=== PATIENT | female | born 1970 | race African-American/Black ===

== ENCOUNTER 2024-03-01 11:53 | Emergency (ER) | payer OTHER, SELFPAY ==
[2024-03-01 11:59] VITALS: BP 155/90; PULSE 107; RESP 14; TEMP 36.5; O2SAT 99; BMI 20.8
--- NOTE | 2024-03-01 12:43 | ED_ITS ---
HPI - Extremity Problem <Dayana Victoria PA-C - Last Filed: 03/01/24 19:18> General Chief complaint: Extremity Problem,Nontraumatic Stated complaint: px radiating from neck down the rt arm Time Seen by Provider: 03/01/24 12:43 Source: patient Mode of arrival: Ambulatory History of Present Illness HPI Narrative: Ms. Montes is a very pleasant 53-year-old female with a past medical history of [id number] type 2 diabetes who presents to the emergency department for right-sided neck pain radiating down the right arm x1 week. Patient states she ?slept on her neck wrong? about 1 week ago and has had worsening right-sided neck pain since then. States that the pain now radiates down the right arm and she also feels ?sore? in the right shoulder, right biceps, right forearm. Denies numbness, tingling, weakness. She does have pain with abduction of the right shoulder. She has a full-time caregiver. Denies any direct injury. States she does have a history of lumbar degenerative disc disease. She took ibuprofen around 10:00 a.m. which improves the symptoms. Related Data Previous Rx's Medication Instructions Recorded methocarbamol 500 mg tablet 500 mg PO TID PRN muscle pain #15 03/01/24 tabs Allergies Allergy/AdvReac Type Severity Reaction Status Date / Time morphine Allergy Verified 03/01/24 11:58 Review of Systems <Dayana Victoria PA-C - Last Filed: 03/01/24 19:18> Review of Systems ROS Unobtainable: All systems reviewed & are unremarkable except as noted in HPI and below Patient History <Dayana Victoria PA-C - Last Filed: 03/01/24 19:18> Social History Smoking Status: Current every day smoker Smoking Status: Current every day smoker Exam <Dayana Victoria PA-C - Last Filed: 03/01/24 19:18> Narrative Exam Narrative: GENERAL: 53 year old patient appears stated age. Well-developed patient, in no acute distress. HEAD: Atraumatic. Normocephalic. ENT: Nose without bleeding, purulent drainage. NECK: Trachea midline. Cervical ROM intact. No midline cervical tenderness. CARDIOVASCULAR: Regular rate. Strong radial pulse bilaterally. RESPIRATORY: ?Nonlabored respirations. ?Speaking in clear, full sentences. EXTREMITIES: No edema or joint tenderness. Subjective pain with active abduction of right shoulder however no pain with passive abduction of right shoulder. 5/5 bilateral veneer sawyer strength and sensation and strength intact in the distribution of the median, radial, ulnar nerves bilaterally BACK: Nontender without deformity or crepitance. NEURO: AOx3. ?Clear speech. ?Sensation intact to light touch throughout median, ulnar, radial nerves bilaterally. SKIN: No rash or erythema of visible areas Initial Vital Signs Initial Vital Signs: Vital Signs Temperature 97.7 F 03/01/24 11:59 Pulse Rate 107 H 03/01/24 11:59 Respiratory Rate 14 03/01/24 11:59 Blood Pressure 155/90 H 03/01/24 11:59 Pulse Oximetry 99 03/01/24 11:59 Oxygen Delivery Method Room Air 03/01/24 11:59 <Tyree Palomo MD - Last Filed: 03/01/24 19:56> Initial Vital Signs Initial Vital Signs: Vital Signs Temperature 97.7 F 03/01/24 11:59 Pulse Rate 107 H 03/01/24 11:59 Respiratory Rate 14 03/01/24 11:59 Blood Pressure 155/90 H 03/01/24 11:59 Pulse Oximetry 99 03/01/24 11:59 Oxygen Delivery Method Room Air 03/01/24 11:59 Course <Dayana Victoria PA-C - Last Filed: 03/01/24 19:18> Orders Ordered: ED Orders 03/01/24 12:53 CT cervical spine wo con Stat Discontinued Medications Acetaminophen (Acetaminophen 325 Mg Tablet) 975 mg PO NOW ONE Stop: 03/01/24 12:54 Last Admin: 03/01/24 13:29 Dose: 975 mg Documented By: LEIGHTON Ketorolac Tromethamine (Ketorolac 30 Mg/Ml Vial) 30 mg IM NOW ONE Stop: 03/01/24 15:23 Last Admin: 03/01/24 15:28 Dose: 30 mg Documented By: LEIGHTON Lidocaine (Lidocaine 5% Patch) 1 each TOP NOW ONE Stop: 03/01/24 12:54 Last Admin: 03/01/24 13:28 Dose: 1 each Documented By: LEIGHTON Vital Signs Vital signs: Vital Signs - 8 hr 03/01/24 11:59 03/01/24 13:00 03/01/24 16:15 Temperature 97.7 F 97.4 F L Pulse Rate 107 H 113 H 88 Respiratory Rate 14 18 16 Blood Pressure 155/90 H 153/95 H Pulse Oximetry 99 99 Oxygen Delivery Method Room Air Room Air Room Air <Tyree Palomo MD - Last Filed: 03/01/24 19:56> Orders Ordered: ED Orders 03/01/24 12:53 CT cervical spine wo con Stat Discontinued Medications Acetaminophen (Acetaminophen 325 Mg Tablet) 975 mg PO NOW ONE Stop: 03/01/24 12:54 Last Admin: 03/01/24 13:29 Dose: 975 mg Documented By: LEIGHTON Ketorolac Tromethamine (Ketorolac 30 Mg/Ml Vial) 30 mg IM NOW ONE Stop: 03/01/24 15:23 Last Admin: 03/01/24 15:28 Dose: 30 mg Documented By: LEIGHTON Lidocaine (Lidocaine 5% Patch) 1 each TOP NOW ONE Stop: 03/01/24 12:54 Last Admin: 03/01/24 13:28 Dose: 1 each Documented By: LEIGHTON Vital Signs Vital signs: Vital Signs - 8 hr 03/01/24 11:59 03/01/24 13:00 03/01/24 16:15 Temperature 97.7 F 97.4 F L Pulse Rate 107 H 113 H 88 Respiratory Rate 14 18 16 Blood Pressure 155/90 H 153/95 H Pulse Oximetry 99 99 Oxygen Delivery Method Room Air Room Air Room Air MDM - Extremity (Nontraumatic) <Dayana Victoria PA-C - Last Filed: 03/01/24 19:18> Imaging Data Cervical Spine CT: Radiologist's Impression: PROCEDURE: CT CERVICAL SPINE WO CON INDICATIONS: neck pain rad down r arm TECHNIQUE: Noncontrast 3 mm thick sections acquired from the skull base to the T4 level. Sagittal and coronal reformats were then constructed. For radiation dose reduction, the following was used: automated exposure control, adjustment of mA and/or kV according to patient size. COMPARISON: None. FINDINGS: Image quality: Excellent. Bones: No fractures or dislocations. Straightening of normal cervical lordosis. Multilevel degenerative changes. Probable moderate central canal stenosis at C5-C6. Mild multilevel central canal stenosis at other levels. Moderate to severe left neural foraminal stenosis at C3-C4 and bilaterally at C4-C5. Severe bilateral neural foraminal stenosis at C5-C6. Visualized superior ribs are intact. Soft tissues: Prevertebral soft tissues are normal in thickness. No parav ertebral hematomas. No apical pneumothoraces. IMPRESSION: Multilevel degenerative changes of the cervical spine as described above, most pronounced at C5-C6. MDM Narrative Medical decision making narrative: 53-year-old female with a past medical history of pcu-[id number] type 2 diabetes who presents to the emergency department for right-sided neck pain radiating down the right arm x1 week. Differential diagnosis includes but is not limited to right rotator cuff tear, cervical radiculopathy, muscle spasm, cervical strain, etc. On exam the patient is in no acute distress, nontoxic appearing, afebrile. She has subjective pain with active abduction of right shoulder but no pain with passive abduction. Positive right-sided empty can test concerning for possible rotator cuff injury. After shared decision-making with the patient, we will proceed with CT cervical spine to evaluate for possible underlying cervical radiculopathy. We will treat with Tylenol Lidoderm patch at this time she already took ibuprofen. CT reveals multilevel degenerative changes of the cervical spine most pronounced at C5-C6 where there is moderate central canal stenosis. Patient was also given IM Toradol after enough time had passed for additional NSAIDs. Suspect her symptoms are related to cervical radiculopathy. Due to her history of diabetes we will not treat with steroids. Recommended ibuprofen/Tylenol in addition I did prescribe her short course of Robaxin if needed. Discussed risks of muscle relaxers. Advised prompt follow up with her PCP and also provided her with spine orthopedic surgery follow up for further evaluation. We discussed gentle stretching. We discussed ER return precautions. Patient verbalized understanding of all information, is feeling better, is requesting discharge in stable for discharge home. Discharge Plan Departure Patient Disposition: Home Clinical Impression: Cervical radiculopathy, Degenerative disc disease, cervical Instructions: DI for Cervical Radiculopathy Activity Restrictions/Additional Instructions: Today you were evaluated for neck pain radiating down the right arm. You had a CT scan performed of your cervical spine which reveals multilevel degenerative changes of the cervical spine which are most pronounced at the C5-C6 level. I recommend that you follow up with an orthopedic spine surgeon for further evaluation. You can call [phone] to schedule an appointment with Dr. Mikey Tavarez, orthopedic spine surgeon with a [facility]. Please take Ibuprofen (Motrin/Advil) or Acetaminophen (Tylenol) for pain. These are available over the counter. You may take Ibuprofen 600 mg every 8 hours with food for pain. You may also take Acetaminophen 650 mg every 4-6 hours for pain. Do not exceed 3000 mg of Tylenol a day as this can cause liver damage. Do not drink alcohol with either of these medications. I have prescribed you a muscle relaxer to use if needed for muscle pain. This medication can make you drowsy. Do not drink alcohol or operate heavy machinery/drive a car while taking muscle relaxers. Please follow up with your primary care doctor within the next 2-3 days for ER follow-up. (If you do not have a PCP you can call [phone]. ?to schedule an appointment with an [facility] Primary Care Provider) IF YOU DEVELOP ANY NEW OR WORSENING SYMPTOMS, RETURN TO THE ER! Please read the attached instructions, they highlight more specific treatments and interventions for you at home. Thank you for letting me participate in your care, Dayana Victoria PA-C Prescriptions: New methocarbamol 500 mg tablet 500 mg PO TID PRN (Reason: muscle pain) Qty: 15 0RF Referrals: Miscellaneous,Doctor[facility] [Primary Care Provider] - Stand Alone Forms: Patient Portal/API/Survey ED Sign-out <Tyree Palomo MD - Last Filed: 03/01/24 19:56> Cosign ED Attending Milenaature Attestation: I was immediately available in the department for consultation. This documentation has been reviewed and I agree with assessment and plan. Supervised by Tyree Palomo MD
--- NOTE | 2024-03-01 12:53 | DI.CT.S_ITS ---
PROCEDURE: CT CERVICAL SPINE WO CON INDICATIONS: neck pain rad down r arm TECHNIQUE: Noncontrast 3 mm thick sections acquired from the skull base to the T4 level. Sagittal and coronal reformats were then constructed. For radiation dose reduction, the following was used: automated exposure control, adjustment of mA and/or kV according to patient size. COMPARISON: None. FINDINGS: Image quality: Excellent. Bones: No fractures or dislocations. Straightening of normal cervical lordosis. Multilevel degenerative changes. Probable moderate central canal stenosis at C5-C6. Mild multilevel central canal stenosis at other levels. Moderate to severe left neural foraminal stenosis at C3-C4 and bilaterally at C4-C5. Severe bilateral neural foraminal stenosis at C5-C6. Visualized superior ribs are intact. Soft tissues: Prevertebral soft tissues are normal in thickness. No paravertebral hematomas. No apical pneumothoraces. IMPRESSION: Multilevel degenerative changes of the cervical spine as described above, most pronounced at C5-C6. Dictated by: Presley Hussein M.D. on 03/01/2024 at 13:45 Approved by: Presley Hussein M.D. on 03/01/2024 at 13:48
[2024-03-01 13:00] VITALS: BP 153/95; PULSE 113; RESP 18; O2SAT 99
[2024-03-01] MEDS: LIDOCAINE 5% PATCH 1 EACH TOP (13:28)
[2024-03-01] MEDS: ACETAMINOPHEN 325 MG TABLET 975 MG PO (13:29)
[2024-03-01] MEDS: KETOROLAC 30 MG/ML VIAL IM (15:28)
[2024-03-01 16:15] VITALS: PULSE 88; RESP 16; TEMP 36.3
== END 2024-03-01 16:15 | disposition home or self-care (01) ==
PROVIDERS: Emergency Provider Physician Assistant
DX: M50.10 Cervical disc disorder with radiculopathy, unspecified cervical region (principal)
CPT/HCPCS: 72125; 96372; 99283; 99284; J1885

== ENCOUNTER → 2024-05-07 10:28 | Outpatient (CLI) | payer BC, SELFPAY ==
[2024-05-07 11:49] LABS: Add Manual Diff / Slide Review NO; Basophils Absolute Auto 100 /uL (0-100); Eosinophils Absolute Auto 100 /uL (0-450); Eosinophils Percent Auto 1.2 % (2-4); Hematocrit 38.9 % (36-46); Hemoglobin 12.6 g/dL (12.0-16.0); Lymphocytes Absolute Auto 2600 /uL (1100-4500); Lymphocytes Percent Auto 46.2 % (25-40); Mean Corpuscular HGB Conc 32.4 % (30-36); Mean Corpuscular Volume 83.5 fL (80-100); Monocytes Absolute Auto 400 /uL (0-900); Monocytes Percent Auto 6.4 % (3-14); Neutrophils Absolute Auto 2600 /uL (1500-7000); Neutrophils Percent Auto 45.2 % (50-75); Platelet Count 396 X10^3/uL (150-400); Red Blood Cell Count 4.67 X10^6/uL (4.0-5.2); Red Cell Distribution Width 14.6 % (11.6-14.8); White Blood Cell Count 5.7 X10^3/uL (4.5-11.0)
[2024-05-07 11:57] LABS: Hemoglobin A1C% w Est Avg Glu 7.6 % (4.0-6.0)
[2024-05-07 12:12] LABS: Alanine Aminotransferase 11 IU/L (<35); Albumin 4.5 g/dL (3.5-5.0); Alkaline Phosphatase 118 U/L (38-126); Aspartate Aminotransferase 17 IU/L (14-36); Bilirubin Total 0.5 mg/dL (0.2-1.3); Blood Urea Nitrogen 14 mg/dL (7-17); Calcium 11.4 mg/dL (8.4-10.2); Carbon Dioxide 27 mmol/L (22-32); Chloride 103 mmol/L (98-107); Cholesterol 196 mg/dL (140-199); Estimated Glomerular Filt Rate > 60 mL/min (>60); Globulin 2.2 g/dL (1.7-4.1); Glucose 202 mg/dL (70-100); HDL Cholesterol 80 mg/dL (40-60); HEMOLYSIS < 15 (0-50); LDL Cholesterol Calculated 99 mg/dL (<100); Potassium 4.4 mmol/L (3.4-5.1); Sodium 138 mmol/L (137-145); Total Protein 6.7 g/dL (6.3-8.2); Triglycerides 85 mg/dL (35-150)
[2024-05-07 12:40] LABS: TSH w/ Reflex to FT4 0.54 uIU/mL (0.47-4.68)
== END ==
PROVIDERS: PCP Family Medicine; Referring Provider Family Medicine; Visit Provider Family Medicine
DX: E11.9 Type 2 diabetes mellitus without complications (principal); I10 Essential (primary) hypertension; E78.5 Hyperlipidemia, unspecified; Z79.899 Other long term (current) drug therapy
CPT/HCPCS: 36415; 80053; 80061; 83036; 84443; 85025

== ENCOUNTER → 2024-12-01 15:52 | Outpatient (CLI) | payer BC, SELFPAY ==
--- NOTE | 2024-12-01 15:53 | DI.RAD.S_ITS ---
PROCEDURE: XR FOOT LT MIN 3V INDICATIONS: Left foot injury TECHNIQUE: 3 views of the foot were acquired. COMPARISON: None. FINDINGS: Bones: No fractures or dislocations. No suspicious bony lesions. Soft tissues: No tibiotalar joint effusion. Achilles tendon appears normal. IMPRESSION: No acute bony abnormality. Approved by: Evan Bowen M.D. on 12/01/2024 at 15:57
== END ==
PROVIDERS: PCP Family Medicine; Referring Provider Registered Nurse; Visit Provider Registered Nurse
DX: M79.672 Pain in left foot (principal)
CPT/HCPCS: 73630

== ENCOUNTER → 2025-03-02 09:29 | Outpatient (CLI) | payer BC, SELFPAY ==
--- NOTE | 2025-03-02 09:30 | DI.CT.S_ITS ---
PROCEDURE: CT LUNG LOW DOSE SCREENING INDICATIONS: chronic tobacco abuse TECHNIQUE: Noncontrast 2.0-2.5 mm thick sections acquired from the pulmonary apices to the posterior costophrenic angles. 7 mm thick axial MIP, and 5 mm coronal and sagittal reformats were then acquired. For radiation dose reduction, the following was used: automated exposure control, adjustment of mA and/or kV according to patient size. COMPARISON: None. FINDINGS: Image quality: Diagnostic. Lower Neck: No enlarged lymph nodes. Thyroid: No thyroid nodules which require sonographic follow up, per consensus guidelines. Axillae: No enlarged lymph nodes. Chest Wall: Unremarkable. Bones: No aggressive appearing bony lesions. Lungs and Pleura: No pneumothorax or pleural effusions. No consolidation or suspicious nodules. Heart: Heart size is normal. No pericardial effusion. Thoracic Vessels: The aorta and pulmonary arteries demonstrate normal size. Mediastinum and Monique: No enlarged lymph nodes. Esophagus: No wall thickening. No hiatal hernia. Upper Abdomen: Visualized upper abdomen solid organs and bowel loops appear normal. IMPRESSION: No suspicious pulmonary nodules. LUNG-RADS 1; continued annual screening, if eligible. Clinically Significant Non-pulmonary Findings: None. Dictated by: Jesse Rodriges M.D. on 03/02/2025 at 13:46 Approved by: Jesse Rodriges M.D. on 03/02/2025 at 13:47
== END ==
LOC: CT 09:29
PROVIDERS: PCP Family Medicine; Referring Provider Family Medicine; Visit Provider Family Medicine
DX: Z12.2 Encounter for screening for malignant neoplasm of respiratory organs (principal); F17.210 Nicotine dependence, cigarettes, uncomplicated
CPT/HCPCS: 71271